=== PATIENT | male | born 1985 | race Two or more races ===

== ENCOUNTER 2023-01-14 17:47 | Emergency (ER) | payer BC, OTHER ==
[~2023-01-14] VITALS: Ht 182.9 cm; Wt 81.0 kg
[2023-01-14 18:16] VITALS: BP 130/84; PULSE 78; RESP 17; TEMP 97.4; O2SAT 97
[2023-01-14] MEDS ORDERED: CYCL-837 PO (20:24)
== END 2023-01-14 20:29 | disposition home or self-care (01) ==
LOC: ER 17:47
DX: R51.9 Headache, unspecified (principal); M54.2 Cervicalgia; V43.52XA Car driver injured in collision with other type car in traffic accident, initial encounter; Y93.89 Activity, other specified; Y92.410 Unspecified street and highway as the place of occurrence of the external cause; Y99.8 Other external cause status
CPT/HCPCS: 70450; 72125